=== PATIENT | male | born 1980 | race Asian ===

== ENCOUNTER 2017-06-24 16:30 | Inpatient (IN) | payer BC, MEDICAID ==
[~2017-06-24] VITALS: Ht 170.2 cm; Wt 95.3 kg
[2017-06-24 19:13] VITALS: BP 153/94
[2017-06-24] MEDS ORDERED: ZOLPIDEM TARTRATE 10 MG TABLET PO PRN (19:15)
[2017-06-24 20:00] VITALS: BP 164/107
[2017-06-24] MEDS ORDERED: INFLUENZA VIRUS VACCINE QVS 2017-18 (3YR+)/PF 60 MCG/0.5 ML SYRINGE IM ONE (20:00)
[2017-06-24] MEDS ORDERED: HALOPERIDOL 5 MG TABLET PO PRN (20:00)
[2017-06-24] MEDS ORDERED: PNEUMOCOCCAL VACCINE POLYVALENT 0.5 ML VIAL [PPSV23] IM ONE (20:00)
[2017-06-24] MEDS: LORazepam 2 MG TABLET PO PRN (20:42)
[2017-06-24 21:00] VITALS: BP 154/114
[2017-06-24 21:46] VITALS: BP 138/104
[2017-06-25] VITALS: BP 135/91
[2017-06-25 01:40] VITALS: BP 135/94
[2017-06-25] MEDS: LORazepam 2 MG TABLET PO PRN (01:44)
[2017-06-25 08:11] VITALS: BP 139/84
[2017-06-25 08:19] LABS: BASOPHILS % (AUTO) 0.7 % (0.0-2.0); EOSINOPHILS % (AUTO) 1.2 % (1.0-6.0); HEMATOCRIT 45.2 % (41-53); HEMOGLOBIN 15.5 g/dL (13.5-17.5); LYMPHOCYTES # (AUTO) 3.5 K/uL (1.0-4.8); LYMPHOCYTES % (AUTO) 32.9 % (22.0-44.0); MEAN CORPUSCULAR HEMOGLOBIN 27.6 pg (26.0-34.0); MEAN CORPUSCULAR HGB CONC 34.3 G/dL (31.0-37.0); MEAN CORPUSCULAR VOLUME 80 fL (80-100); MONOCYTES # (AUTO) 0.8 K/uL (0.1-1.0); MONOCYTES % (AUTO) 7.3 % (2.0-9.0); NEUTROPHILS # (AUTO) 6.2 K/uL (1.8-7.7); NEUTROPHILS % (AUTO) 57.9 % (40.0-70.0); PLATELET COUNT (AUTO) 377 K/uL (150-450); RED BLOOD CELL COUNT(AUTO) 5.62 MIL/uL (4.50-5.90); RED CELL DISTRIBUTION WIDTH 13.8 % (11.5-14.5); WHITE BLOOD COUNT (AUTO) 10.8 K/uL (4.5-11.0)
[2017-06-25] MEDS: LISINOPRIL 10 MG TABLET PO SCH (08:34)
[2017-06-25 08:42] LABS: ALBUMIN 4.6 g/dL (3.4-5.0); BILIRUBIN,TOTAL 1.4 mg/dL (0.1-1.0); CALCIUM, TOTAL 9.7 mg/dL (8.8-10.5); CREATININE 1.7 mg/dL (0.60-1.30); POTASSIUM 4.3 mmol/L (3.5-5.1); TOTAL PROTEIN, SERUM 7.6 g/dL (6.4-8.2)
[2017-06-25] MEDS: NICOTINE 14 MG/24 HOUR PATCH TD SCH (11:26)
[2017-06-25 16:10] VITALS: BP 137/88
[2017-06-25] MEDS: OLANZapine 10 MG TABLET PO SCH (20:32)
[2017-06-25] MEDS ORDERED: BACITRACIN 28.4 GM OINTMENT TP PRN (22:00)
[2017-06-25] MEDS ORDERED: ONDANSETRON HCL 4 MG TABLET PO PRN (22:00)
[2017-06-25] MEDS ORDERED: ALBUTEROL SULFATE HFA 90 MCG/PUFF 8 GM INHALER IH PRN (22:00)
[2017-06-25] MEDS ORDERED: CloNIDine HCL 0.1 MG TABLET PO PRN (22:00)
[2017-06-25] MEDS ORDERED: ACETAMINOPHEN 325 MG TABLET PO PRN (22:00)
[2017-06-25] MEDS ORDERED: BENZOCAINE/MENTHOL LOZENGE MM PRN (22:00)
[2017-06-25] MEDS ORDERED: LOPERAMIDE HCL 2 MG CAPSULE PO PRN (22:00)
[2017-06-25] MEDS ORDERED: PETROLATUM,WHITE 71 GM JELLY TP PRN (22:00)
[2017-06-25] MEDS ORDERED: MAGNESIUM HYDROXIDE SUSPENSION 30 ML UDCUP PO PRN (22:00)
[2017-06-25] MEDS ORDERED: MAG HYDROX/AL HYDROX/SIMETH ES 30 ML SUSPENSION UDCUP PO PRN (22:00)
[2017-06-25] MEDS ORDERED: IBUPROFEN 600 MG TABLET PO PRN (22:00)
[2017-06-26 02:00] VITALS: BP 140/89
[2017-06-26 07:57] LABS: ANION GAP 8 mmol/L (8-16); CALCIUM, TOTAL 9.9 mg/dL (8.8-10.5); CARBON DIOXIDE 30 mmol/L (22-29); CHLORIDE 102 mmol/L (98-107); CHOL/HDL RATIO 5.5 (4.2-7.3); GLOMERULAR FILTR. RATE CALC > 60 mL/min (>60); POTASSIUM 4.8 mmol/L (3.5-5.1); SODIUM SERUM 140 mmol/L (136-145); UREA NITROGEN, BLOOD 18 mg/dL (7-18)
[2017-06-26 07:58] LABS: THYROID STIMULATING HORMONE 2.14 uIU/mL (0.36-3.74)
[2017-06-26 08:04] VITALS: BP 157/91
[2017-06-26] MEDS: NICOTINE 14 MG/24 HOUR PATCH TD SCH (08:13)
[2017-06-26] MEDS: LISINOPRIL 10 MG TABLET PO SCH (08:13)
[2017-06-26 09:05] VITALS: BP 123/81
[2017-06-26 16:04] VITALS: BP 122/93
[2017-06-26] MEDS: OLANZapine 10 MG TABLET PO SCH (20:16)
[2017-06-27 00:34] VITALS: BP 130/81
[2017-06-27 08:14] VITALS: BP 139/89
[2017-06-27] MEDS: LISINOPRIL 10 MG TABLET PO SCH (08:46)
[2017-06-27] MEDS: NICOTINE 14 MG/24 HOUR PATCH TD SCH (08:46)
[2017-06-27 09:08] LABS: HEPATITIS Bs ANTIGEN SCREEN P Negative (Negative); HEPATITIS C AB SCREEN <0.1 s/co ratio (0.0-0.9)
[2017-06-27] MEDS ORDERED: LISI-661 PO (12:11)
[2017-06-27] MEDS ORDERED: OLAN10TA3 PO (12:11)
== END 2017-06-27 15:03 | disposition home or self-care (01) | DRG 885 ==
LOC: B2S 19:11
PROVIDERS: ADMIT Psychiatry & Neurology Child & Adolescent Psychiatry; ATTEND Psychiatry & Neurology Child & Adolescent Psychiatry
DX: F20.0 Paranoid schizophrenia (principal); N17.9 Acute kidney failure, unspecified; I10 Essential (primary) hypertension; F17.290 Nicotine dependence, other tobacco product, uncomplicated; R74.0 Nonspecific elevation of levels of transaminase and lactic acid dehydrogenase [LDH]; R00.0 Tachycardia, unspecified; M25.551 Pain in right hip; Z71.6 Tobacco abuse counseling
CPT/HCPCS: 80074; 82306; 84443